=== PATIENT | female | born 1990 | race Caucasian/White ===

== ENCOUNTER 2022-07-20 12:28 | Emergency (ER) | payer OTHER, SELFPAY ==
[2022-07-20] VITALS (8 sets, daily range): BP systolic 128–141; BP diastolic 66–87; PULSE 66–84; RESP 16–28; TEMP 36.3–36.7; O2SAT 99–100
--- NOTE | ~2022-07-20 | XR_ITS ---
XR chest 1V portable DATE: 07/20/2022 12:58 INDICATION: Shortness of breath. Bronchitis. TECHNIQUE: Portable AP chest on 07/20/2022 at 1304 hours COMPARISON: None FINDINGS: Normal heart size. No hilar or mediastinal enlargement. No pulmonary infiltrate or consolid ation, pleural effusion or pulmonary vascular congestion or pneumothorax. IMPRESSION: No active cardiopulmonary disease Reviewed, dictated and finalized at location A.
--- NOTE | 2022-07-20 12:43 | ECG_ITS ---
Measurements Intervals [place] Rate: 66 P: 67 MD: 164 QRS: 74 QRSD: 84 T: 60 QT: 392 QTc: 412 Interpretive Statements SINUS RHYTHM WITH SINUS ARRHYTHMIA NORMAL ECG NO PREVIOUS ECG AVAILABLE FOR COMPARISON Electronically Signed On 07-21-2022 7:11:56 CDT by Smooth Rocha D.O.
[2022-07-20] MEDS: IPRATROPIUM 0.5 MG/ALBUTEROL SULFATE 2.5 MG AMPUL.NEB 3 ML INHALATION ×2 (13:12→14:34)
[2022-07-20] MEDS: methylPREDNISolone SOD SUCC 125 MG VIAL IV PUSH (13:28)
[2022-07-20 13:34] LABS: Base Excess ABG 1.3 mmol/L (0-2); HCO3 ABG 20.2 mmol/L (23-29); Oxygen Content ABG 19.5 %vol (16.0-22.0); Oxyhemoglobin 93.3 % (94-100); PO2 ABG 69.7 mmHg (80-90); Total Hemoglobin 14.9 g/dL (12.0-18.0); pH ABG 7.62 (7.35-7.45)
[2022-07-20] MEDS: guaiFENesin 12 HR 600 MG TABCR PO (13:35)
[2022-07-20 13:40] LABS: Basophils Absolute Auto 0.02 K/mm3 (0.00-0.10); Basophils Percent Auto 0.3 % (0.0-1.0); Eosinophils Absolute Auto 0.47 K/mm3 (0.02-0.50); Eosinophils Percent Auto 6.2 % (1.0-6.0); Hematocrit 43.2 % (35.0-49.0); Hemoglobin 14.2 g/dL (12.0-15.0); Immature Granulocyte Absolute 0.02 K/mm3 (0.00-0.00); Immature Granulocyte Percent A 0.3 % (0.0-0.0); Lymphocytes Absolute Auto 2.36 K/mm3 (1.10-4.50); Mean Corpuscular HGB Conc 32.9 g/dL (32.0-36.0); Mean Corpuscular Hemoglobin 33.7 pg (27.0-31.0); Mean Corpuscular Volume 102.6 fL (78.0-102.0); Mean Platelet Volume 9.5 fl (9.2-11.8); Monocytes Absolute Auto 0.57 K/mm3 (0.10-0.90); Monocytes Percent Auto 7.5 % (2.0-11.0); Neutrophils Absolute Auto 4.2 K/mm3 (1.7-7.2); Neutrophils Percent Auto 54.7 % (50.0-70.0); Platelet Count Result 333 K/mm3 (150-420); Red Blood Count 4.21 M/mm3 (4.20-5.40); Red Cell Distribution Width 11.9 % (11.6-14.4); White Blood Count 7.6 K/mm3 (4.8-10.8)
[2022-07-20 13:44] LABS: Device ROOM AIR; Modified Allen's Test Pass; PCO2 ABG 20.3 mmHg (35-45); Site Drawn RIGHT RADIAL
[2022-07-20] MEDS: KETOROLAC (*BKC) 60 MG/2 ML VIAL IM (13:46)
[2022-07-20 13:58] LABS: Alanine Aminotransferase 21 U/L (14-59); Alkaline Phosphatase 62 U/L (46-116); Anion Gap 11 mmol/L (8-16); Aspartate Amino Transferase 13 U/L (15-37); Bilirubin,Total 0.5 mg/dL (0.00-1.00); Blood Urea Nitrogen 9 mg/dL (7-18); Calcium 9.3 mg/dL (8.5-10.1); Carbon Dioxide 23 mmol/L (21-32); Chloride 106 mmol/L (98-108); Estimated CRCL calculation 61 ml/min; Estimated Glomerular Filt Rate > 60; Glucose 84 mg/dL (70-99); Osmolality Calculated 287 mOsm/kg (285-295); Potassium 3.5 mmol/L (3.5-5.1); Sodium 140 mmol/L (136-145)
[2022-07-20 14:01] LABS: Lactic Acid Reflex 1.5 mmol/L (0.4-2.0)
[2022-07-20 14:16] LABS: Influenza A QL RT-PCR Negative (Negative); Influenza B QL RT-PCR Negative (Negative); SARS-CoV-2 RNA PCR Negative (Negative)
--- NOTE | 2022-07-20 14:31 | ED.SOB ---
HPI - SOB/Dyspnea General Chief Complaint: Shortness of Breath/Dyspnea Stated Complaint: dyspnea Time Seen by Provider: 07/20/22 12:32 Source: patient Mode of arrival: ambulatory Limitations: no limitations History of Present Illness MD elicited complaint: shortness of breath Pertinent past history: COPD Onset (ago): day(s) (1) Timing: progressively worsening Severity: moderate Exacerbating factors: nothing Relieving factors: bronchodilators Known history of: COPD Associated symptoms: pain with inspiration and cough Related Data Allergies Allergy/AdvReac Type Severity Reaction Status Date / Time No Known Allergies Allergy Verified 07/20/22 12:44 Review of Systems Review of Systems: All systems reviewed & are unremarkable except as noted in HPI and below Constitutional: Constitutional: Reports no additional constitutional complaints Eyes: Eyes: Reports no additional eye complaints ENT: Reports system reviewed and no additional complaints, except as documented Cardiovascular: Cardiovascular: Reports no additional cardiovascular complaints Respiratory: Respiratory: Reports cough and Reports dyspnea Gastrointestinal: Gastrointestinal: Reports no additional gastrointestinal complaints Genitourinary: Genitourinary: Reports no additional female genitourinary complaints Musculoskeletal: Musculoskeletal: Reports no additional musculoskeletal complaints Integumentary/Breasts: Skin/Breast: Reports system reviewed and no additional complaints, except as docu Neurologic: Reports system reviewed and no additional complaints, except as documented Psychiatric: Psychiatric: Reports no additional psychiatric complaints Endocrine: Endocrine: Reports no additional endocrine complaints Hematologic/Lymphatic: Hematologic/Lymphatic: Reports no additional hematologic/lymphatic complaints Allergic/Immunologic: Allergic/Immunologic: Reports no additional allergic/immunologic complaints PMFSH Past Medical History Medical History Bronchitis Exam Const: General: healthy appearing and no acute distress Nutritional Appearance: well nourished Orientation/consciousness: patient oriented x3 Limitations: no limitations HENMT: Head: normal to inspection Ears: external ears normal, TM's normal bilaterally and EAC's normal General nose exam: Normal external nose present and Normal nares present Face and sinus: normal facial exam and sinuses nontender Mouth: Yes Normal oral and palatal mucosa present and Yes moist mucous membranes Teeth and gingiva: dentition normal Throat: posterior oropharynx normal Eyes: Conjunctivae: conjunctivae normal Pupils: Equal, round and reactive pupils present EOM: EOMs intact bilaterally Neck: Neck: normal visual inspection, no lymphadenopathy and no meningeal signs Chest: Chest palpation & inspection: normal inspection of the chest Resp: Effort & Inspection: labored and retractions Auscultation: rhonchi and wheezes Cardio: Rate: regular rate Rhythm: regular rhythm GI: GI Palp: Yes Soft to palpation and No Tenderness to palpation present (GI) Auscultation: normal bowel sounds : General: Yes bladder normal to palpation and Yes no CVA tenderness Bimanual exam- vagina & uterus: bladder normal to palpation Back/Spine/Pelvis: Back: no CVA tenderness Skin: General skin exam: normal color Rashes: no rashes Wounds: no wounds Neuro: General: patient oriented x3, moves all extremities, no meningeal signs, no focal motor deficits and CN's II-XI intact bilaterally Cranial nerves: Yes Equal, round and reactive pupils present and Yes Nystagmus not present Speech: normal speech Gait exam (Neuro): Normal gait present Extrem: General: normal to inspection and no pedal edema Psych: Mental Status: mental status grossly normal Affect: normal affect Attitude: cooperative Course Course Emergency Course: Pt was stable in the ED, less SOB.
== END 2022-07-20 14:54 | disposition home or self-care (01) ==
PROVIDERS: Emergency Provider Emergency Medicine; PCP Nurse Practitioner
DX: J40 Bronchitis, not specified as acute or chronic (principal); Z20.822 Contact with and (suspected) exposure to COVID-19
CPT/HCPCS: 36415; 36600; 71045; 80053; 82805; 83605; 85025; 87502; 93005; 94640; 96365; 96372; 96375; 99284; A9270; C9803; J0696; J1885; J2930; U0003; U0005

== ENCOUNTER 2023-02-26 15:09 | Emergency (ER) | payer OTHER, SELFPAY ==
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
[2023-02-26 15:09] VITALS: BP 162/99; PULSE 116; RESP 17; TEMP 36.7; O2SAT 99
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
--- NOTE | 2023-02-26 15:30 | PC.NURSE ---
patient on the phone with a [facility] at this time.
[2023-02-26] MEDS: KETOROLAC (*BKC) 60 MG/2 ML VIAL IM (15:52)
[2023-02-26] MEDS: ORPHENADRINE CITRATE 30 MG/ML 2 ML VIAL 60 MG IM (15:53)
[2023-02-26] MEDS: HYDROcodone/acetaminophen (*CRX) 5-325 MG TABLET 1 TAB PO (17:41)
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
[2023-02-26 18:07] VITALS: BP 120/72; PULSE 50; RESP 17; TEMP 36.3; O2SAT 99
--- NOTE | 2023-02-26 18:26 | PC.NURSE ---
Prescription for Flexeril 5mg one tablet TID # 20 0 refill verbal order given to Catrina at [facility] due to [facility] being closed, patient is okay with waiting until tomorrow for Percocet.
--- NOTE | 2023-02-26 18:29 | PC.NURSE ---
RN left message on [facility] voicemail to cancel the Flexeril prescription.
== END 2023-02-26 18:12 | disposition home or self-care (01) ==
PROVIDERS: Emergency Provider Emergency Medicine; PCP Family Medicine
DX: S00.83XA Contusion of other part of head, initial encounter (principal); S39.92XA Unspecified injury of lower back, initial encounter; Y04.2XXA Assault by strike against or bumped into by another person, initial encounter
CPT/HCPCS: 70486; 72128; 72131; 96372; 99284; A9270; J1885; J2360

== ENCOUNTER 2025-01-16 12:29 | Emergency (ER) | payer OTHER, SELFPAY ==
--- NOTE | ~2025-01-16 | CT_ITS ---
EXAMINATION: CT abdomen pelvis wo con DATE: 01/16/2025 13:36 INDICATION: Left flank pain. Left lower quadrant abdominal pain. TECHNIQUE: Computed tomography (CT) of the abdomen and pelvis was performed without intravenous contr ast. Automated exposure control and iterative reconstruction technique were employed. The dose-length product was 164.78 mGy-cm. COMPARISON: None. FINDINGS: The visualized portions of the lung bases demonstrate mild atelectasis on the right. No ple ural effusion. The heart size is normal. No pericardial effusion. The liver is normal. The changes of cholecystectomy. The spleen, pancreas, adrenal glands, and kidneys are normal. There is no urolithia sis. There are no dilated loops of bowel. The appendix is normal. There are no pathologically enlarge d lymph nodes. There is no free intraperitoneal fluid. There is mild lumbar spondylosis. IMPRESSION: 1. No etiology for the patient's symptoms. Reviewed, dictated and finalized at location B.
--- NOTE | ~2025-01-16 | US_ITS ---
EXAMINATION: US transvaginal DATE: 01/16/2025 14:49 INDICATION: Left pelvic pain. TECHNIQUE: Multiple transvaginal sonographic images of the pelvis were obtained. COMPARISON: CT abdomen and pelvis 01/16/2025 FINDINGS: The uterus measures 8.1 x 4.5 x 4.0 cm. There is no free fluid in the pelvis. The endometrial complex measures 3 mm in thickness. The right ovary measures 3.0 x 2.3 x 2.5 cm. The left ovary measures 2.3 x 2.8 x 2.3 cm. There is a 17 mm hemorrhagic cyst in left ovary. IMPRESSION: 1. 17 mm hemorrhagic cyst in left ovary. Reviewed, dictated and finalized at location B.
[2025-01-16 12:30] VITALS: BP 161/99; PULSE 95; RESP 16; TEMP 36.4; O2SAT 100
--- NOTE | 2025-01-16 12:37 | ED_ITS ---
HPI - Abdominal Pain General Chief Complaint: Urogenital-Female Stated Complaint: flank pain Time Seen by Provider: 01/16/25 12:33 Source: patient Mode of arrival: ambulatory Limitations: no limitations History of Present Illness HPI narrative: 34 year old female presents to the Emergency Department complaining of left suprapubic abdominal pain and left lower back pain. Onset 3 days ago. No history of kidney stones. Patient states she had history of ruptured ovarian cyst in past. States when she urinates, it still feels like she needs to void more. MD elicited complaint: abdominal pain (left suprapubic) and flank pain (left lower) Pertinent past history: other (ruptured ovarian cyst) Onset (ago): day(s) (3) Pain Consistency: intermittent Severity: moderate Quality: cramping Radiation: L flank Exacerbating factors: nothing Relieving factors: nothing Associated symptoms: denies other symptoms Related Data Patient : No Allergies Allergy/AdvReac Type Severity Reaction Status Date / Time No Known Allergies Allergy Verified 01/16/25 12:34 Review of Systems Review of Systems: All systems reviewed & are unremarkable except as noted in HPI and below Constitutional: Constitutional: Reports as per HPI, Denies chills and Denies fever(s) Eyes: Eyes: Reports as per HPI ENT: Reports system reviewed and no additional complaints, except as documented Cardiovascular: Cardiovascular: Reports as per HPI and Denies chest pain Respiratory: Respiratory: Reports as per HPI, Denies cough and Denies dyspnea Gastrointestinal: Gastrointestinal: Reports as per HPI, Reports abdominal pain, Denies constipation, Denies diarrhea, Denies nausea and Denies vomiting Genitourinary: Genitourinary: Reports no additional female genitourinary complaints and Reports flank pain Musculoskeletal: Musculoskeletal: Reports no additional musculoskeletal complaints Integumentary/Breasts: Skin/Breast: Reports system reviewed and no additional complaints, except as docu Neurologic: Reports system reviewed and no additional complaints, except as documented Psychiatric: Psychiatric: Reports no additional psychiatric complaints Endocrine: Endocrine: Reports no additional endocrine complaints Hematologic/Lymphatic: Hematologic/Lymphatic: Reports no additional hematologic/lymphatic complaints Allergic/Immunologic: Allergic/Immunologic: Reports no additional allergic/immunologic complaints PMFSH Past Medical History Medical History Bronchitis Exam Const: General: healthy appearing Nutritional Appearance: well nourished Orientation/consciousness: patient oriented x3 Limitations: no limitations HENMT: Head: normal to inspection Ears: external ears normal Face/Nose/Sinus: Normal external nose present Face and sinus: normal facial exam Mouth: Yes Normal oral and palatal mucosa present Eyes: Conjunctivae: conjunctivae normal Pupils: Equal, round and reactive pupils present EOM: EOMs intact bilaterally Direct Ophthalmoscopy: no photophobia Neck: Neck: normal visual inspection Chest: Chest palpation & inspection: normal inspection of the chest Resp: Effort & Inspection: normal respiratory effort Cardio: Rate: regular rate GI: Inspection: non-distended GI Palp: Yes Soft to palpation, Yes Tenderness to palpation present (GI) (very slight left suprapubic tenderness), No Guarding due to palpation present (GI), No Hernia present, No Palpable mass present and No Rebound tenderness present : General: Yes bladder normal to palpation Back/Spine/Pelvis: Back: no CVA tenderness Skin: General skin exam: normal color Rashes: no rashes Wounds: no wounds Neuro: General: patient oriented x3 Cranial nerves: Yes Nystagmus not present Speech: normal speech Gait exam (Neuro): Normal gait present Extrem: General: normal to inspection and no clubbing, cyanosis or edema Psych: Mental Status: mental status grossly normal Course Course Emergency Course: 34 y/o female presents to the ED c/o left suprapubic /left flank pain. Onset 3 days ago. Hx ruptured ovarian cyst. No hx of kidney stones. PE: abdomen minimally tender to palpation, back non-tender to palpation or percussion UA: trace LE UPreg: negative CT Abd/Pelvis: no acute findings Pelvic U/S: 17 mm hemorrhagic cyst L ovary *reviewed and discussed results with patient. Discussed further management. Patient voices understanding and agreement. Rx and Instructions Vital Signs Vital signs: Vital Signs Temperature 36.4 C 01/16/25 12:30 Pulse Rate 95 01/16/25 12:30 Respiratory Rate 16 01/16/25 12:30 Blood Pressure 161/99 H 01/16/25 12:30 Pulse Oximetry 100 01/16/25 12:30 Oxygen Delivery Room Air 01/16/25 12:30 Temperature 36.4 C 01/16/25 12:30 Pulse Rate 76 01/16/25 15:00 Respiratory Rate 17 01/16/25 15:00 Blood Pressure 151/88 H 01/16/25 15:00 Pulse Oximetry 100 01/16/25 15:00 Oxygen Delivery Room Air 01/16/25 15:00 MDM - Abdominal Pain Lab Data Labs: Lab Results 01/16/25 Range/Units 12:45 Urine Color Light yellow (Yellow) Urine Appearance Clear (Clear) Urine pH 6.5 (5.0-8.0) Ur Specific [place] 1.020 (1.010-1.020) Urine Protein Negative (Negative) Urine Glucose (UA) Negative (Negative) Urine Ketones Negative (Negative) Ur Blood (Man) Negative (Negative) Urine Nitrate Negative (Negative) Urine Bilirubin Negative (Negative) Urine Urobilinogen 0.2 (0.2-1.0) mg/dL Ur Leukocyte Esterase Trace H (Negative) Urine RBC None seen (0-2) /hpf Urine WBC None seen (0-3) /hpf Ur Squamous Epith Cells Few (Few) /hpf Urine Bacteria Trace (None) /hpf Urine Test Negative Imaging Data Radiologist's impression: ITS Impressions Abdomen/Pelvis CT 01/16/25 13:38 IMPRESSION: 1. No etiology for the patient's symptoms. Transvaginal US 01/16/25 15:01 IMPRESSION: 1. 17 mm hemorrhagic cyst in left ovary. Discharge Plan Discharge Clinical Impression: Hemorrhagic cyst of left ovary Patient Disposition: Home, Self-Care Condition: Stable Instructions: Ovarian Cyst (ED) Additional Instructions: Take medication as prescribed Follow up Primary Care Physician - call tomorrow Patient Language: Bulgarian Prescriptions: New hydrocodone-acetaminophen 7.5-325 mg tablet 1 tablet PO Q6H PRN (Reason: pain) Qty: 20 0RF No Action amoxicillin 875 mg tablet 875 mg PO Q12H Qty: 20 0RF Mucinex DM 30-600 mg tablet extended release 12 hr 1 tablet PO Q12H Qty: 20 0RF methylprednisolone [Medrol (Asif)] 4 mg tablets,dose pack See Rx Instructions .ROUTE .COMPLEX Qty: 21 0RF Rx Instructions: orally per package directions albuterol sulfate 90 mcg/actuation HFA aerosol inhaler 2 puff inhalation QID Qty: 8.5 0RF ibuprofen 800 mg tablet 800 mg PO TID Qty: 20 0RF omeprazole magnesium [Prilosec OTC] 20 mg tablet,delayed release (DR/EC) 20 mg PO BID Qty: 20 0RF tramadol 50 mg tablet 50 mg PO BID PRN (Reason: pain) Qty: 4 0RF cyclobenzaprine 5 mg tablet 5 mg PO TID Qty: 20 0RF oxycodone-acetaminophen [Percocet] 5-325 mg tablet 1 tablet PO Q6H PRN (Reason: pain) Qty: 14 0RF Follow-up/Referrals: Nikita Ayon M.D. [Primary Care Provider] - Stand Alone Forms: Work/School Release IP Time of Disposition: 15:34
[2025-01-16 12:47] LABS: Add Urine Microscopic? YES; Appearance Urine Clear (Clear); Bilirubin Urine Negative (Negative); Blood Urine Negative (Negative); Color Urine Light Yellow (Yellow); Glucose Urine UA Negative (Negative); Ketones Urine Negative (Negative); Leukocyte Esterase Ur Trace (Negative); Nitrate Urine Negative (Negative); Protein Urine Negative (Negative); Urobilinogen Urine 0.2 mg/dL (0.2-1.0); pH Urine 6.5 (5.0-8.0)
[2025-01-16 13:00] LABS: Bacteria Urine Trace /hpf; Pregnancy On Board Control Positive; RBC Urine None seen /hpf (0-2); Squamous Epithelial Cell Urine Few /hpf (Few); Urine Pregnancy Test Negative; WBC Urine None seen /hpf (0-3)
[2025-01-16 13:30] VITALS: BP 130/78; PULSE 75; RESP 16; O2SAT 100
[2025-01-16 14:00] VITALS: BP 137/92; PULSE 66; RESP 17; O2SAT 100
--- OUTSIDE RECORDS SUMMARY | 2025-01-16 14:22 | XMS_ITS | Clinical Summary ---
Author Organization [facility] Address [facility] [place] [address] Care Team Providers Care Director Of Direct Marketing Name Role Phone Mickey Bustamante MD Primary Care Provider [phone] Leland Brooks COMMODITY MANAGEMENT SPECIALIST Unavailable [phone] Allergies No known active allergies Medications traMADol 50 MG tabletIndication s:Acute Pain < 7 Day Supply Indications : Acute Pain < 7 Day Supply 1-2 every 6 hours as needed for pain 20 tablet 06/17/2021 Active Active Problems Problem Noted Date Diagnosed Date Acute cholecystitis 01/17/2020 Family History Medical History Relation Comments Heart Disease Father Hypertension Father Heart Disease Maternal Grandfather Aneurysm Paternal Grandfather Heart Disease Paternal Grandfather Asthma Son Heart Disease Son Relation Status Comments Father Maternal Grandfather Paternal Grandfather Son Social History Tobacco Use Types Packs/Day Years Used Date Smoking Tobacco: Every Day Cigarettes Smokeless Tobacco: Never Alcohol Use Standard Drinks/Week Comments Yes 0 (1 standard drink = 0.6 oz pur e alcohol) AUDIT-C Answer Date Recorded Frequency of Alcohol Consumption Never 05/25/2019 Average Number of Drinks Not on file 019 Frequency of Binge Drinking Not on file 05/09 Comments No Sex and Gender Information Value Date Recorded Sex Assigned at Not on file Legal Sex Female 2:30 PM CDT Gender Identity Not on file Sexual Orientation Not on file Last Filed Vital Signs Vital Sign Reading Time Taken Comments Blood Pressure 115/74 06/17/2021 7:00 PM CDT Pulse 83 06/17/2021 6:53 PM CDT Temperature 36.3 C (97.4 F) 06/17/2021 6:53 PM CDT Respiratory Rate 18 06/17/2021 6:53 PM CDT Oxygen Saturation 100% 06/17/2021 7:00 PM CDT Inhaled Oxygen Concentration - - Weight 52.2 kg (115 lb) 06/17/2021 6:53 PM CDT Height 154.9 cm (5' 1 ) 06/17/2021 6:53 PM CDT Body Mass Index 21.73 06/17/2021 6:53 PM CDT Plan of Treatment Health Maintenance Due Date Last Done Comments Cervical Cancer Screening Pa p Smear (Age 30 to 64) Every 3 Years 1992 Annual Physical 1995 Pneumococcal Vaccine: Pediat rics (0 to 5 Years) and At-Risk Patients (6 to 64 Years) (1 of 2 - PCV) 1998 Hepatitis C 2010 DTaP, Tdap and Td Vaccines ( 1 - Tdap) 2011 Hepatitis B Vaccines (1 of 3 - 19+ 3-dose series) 2011 Cervical Cancer Screening Pa p with HPV Testing (Age 30 to 64) Every 5 Years 2022 Cervical Cancer Screening with HPV 2022 COVID-19 Vaccine ( - 2023-2 5 season) 2024 Influenza Adult (#1) 2024 HPV Vaccines Aged Out No longer eligi ble based on patient's age to complete this topic Meningococcal B Vaccine Aged Out No l onger eligible based on patient's age to complete this topic Meningococcal Vaccine Aged Out No johny aparna eligible based on patient's age to complete this topic RSV Immunizations Under 20 Months Aged Out No longer eligible based on patient's age to complete this topic Insurance [employer]ET[employer] Advance Directives * Full Code (Latest Code Status on File) Date Activated Date Inactivated Comments 01/17/2020 4:57 AM 01/18/2020 12:27 PM Care Teams Director Of Direct Marketing Relationship Specialty Start Date End Date Mickey Bustamante MD [address] [place] [address] PCP - General FAMILY PRACTICE 04/11/19 Leland Brooks, COMMODITY MANAGEMENT SPECIALIST [address] [place] [address] NURSE PRACTITIONER 08/01/19
--- OUTSIDE RECORDS SUMMARY | 2025-01-16 14:22 | XMS_ITS | Encounter Summary ---
Author Organization [facility] Address [facility] [place] [address] Care Team Providers Care Shed Workers Supervisor Name Role Phone Mickey Bustamante MD Primary Care Provider [phone] Lelnad Brooks LOOP SEWER Unavailable [phone] Encounter Details Date Type Department Care Team (Late st Contact Info) Description 04/08/2019 [facility] [address] [place] [address] , Harvey Fan MD Social History Tobacco Use Types Packs/Day Years Used Date Smoking Tobacco: Never Assessed Comments Unknown Sex and Gender Information Value Date Recorded Sex Assigned at Not on file Legal Sex Female 2:30 PM CDT Gender Identity Not on file Sexual Orientation Not on file documented as of this encounter Plan of Treatment Not on file documented as of this encounter Visit Diagnoses Not on filedocumented in this encounter Care Teams Shed Workers Supervisor Relationship Specialty Start Date End Date Mickey Bustamante MD [address] [place] [address] PCP - General FAMILY PRACTICE 04/11/19 Leland Brooks, LOOP SEWER [address] [place] [address] NURSE PRACTITIONER 08/01/19 documented as of this encounter
--- OUTSIDE RECORDS SUMMARY | 2025-01-16 14:22 | XMS_ITS | Encounter Summary ---
Author Organization [facility] Address [facility] [place] [address] Care Team Providers Care Wet And Dry Sugar Bin Operator Name Role Phone Mickey Bustamante MD Primary Care Provider Leland Brooks SETTER COLD ROLLING MACHINE Unavailable [phone] Encounter Details Date Type Department Care Team (Late st Contact Info) Description 04/16/2019 Abstract [facility] [address] [place] [address] , Generic Conversion, Social History Tobacco Use Types Packs/Day Years [...] on filedocumented in this encounter Care Teams Wet And Dry Sugar Bin Operator Relationship Specialty Start Date End Date Mickey Bustamante MD [address] [place] [address] PCP - General FAMILY PRACTICE 04/11/19 Leland Brooks, SETTER COLD ROLLING MACHINE [address] [place] [address] NURSE PRACTITIONER 08/01/19 documented as of this encounter
[2025-01-16 14:30] VITALS: BP 135/98; PULSE 70; RESP 17; O2SAT 100
--- OUTSIDE RECORDS SUMMARY | 2025-01-16 14:59 | XMS_ITS | Clinical Summary ---
Author Organization [facility] Address [facility] [place] [address] Care Team Providers Care Used Car Salesperson Name Role Phone Mickey Bustamante MD Primary Care Provider [phone] Leland Brooks ADMINISTRATIVE ASSISTANT FRONT DESK Unavailable [phone] Allergies No known active allergies Medications [...] 4:57 AM 01/18/2020 12:27 PM Care Teams Used Car Salesperson Relationship Specialty Start Date End Date Mickey Bustamante MD [address] [place] [address] PCP - General FAMILY PRACTICE 04/11/19 Leland Brooks, ADMINISTRATIVE ASSISTANT FRONT DESK [address] [place] [address] NURSE PRACTITIONER 08/01/19
--- OUTSIDE RECORDS SUMMARY | 2025-01-16 14:59 | XMS_ITS | Encounter Summary ---
Author Organization [facility] Address [facility] [place] [address] Care Team Providers Care Vest Presser Name Role Phone Mickey Bustamante MD Primary Care Provider [phone] Leland Brooks AUTOMOBILE SALES CONSULTANT Unavailable [phone] Encounter Details Date Type Department Care Team (Late st Contact Info) Description 04/16/2019 Abstract [facility] CONVERSION [address] [place] [address] , Generic Conversion, Social History Tobacco Use [...] on filedocumented in this encounter Care Teams Vest Presser Relationship Specialty Start Date End Date Mickey Bustamante MD [address] [place] [address] PCP - General FAMILY PRACTICE 04/11/19 Leland Brooks, AUTOMOBILE SALES CONSULTANT [address] [place] [address] NURSE PRACTITIONER 08/01/19 documented as of this encounter
--- OUTSIDE RECORDS SUMMARY | 2025-01-16 14:59 | XMS_ITS | Encounter Summary ---
Author Organization [facility] Address [facility] [place] [address] Care Team Providers Care Personal Shopper Name Role Phone Mickey Bustamante MD Primary Care Provider [phone] Leland Brooks CHILD WELFARE SOCIAL WORKER Unavailable [phone] Encounter Details Date Type Department Care Team (Late st Contact Info) Description 04/08/2019 Abstract [facility] [address] [place] [address] , Harvey Fan MD Social History Tobacco [...] on filedocumented in this encounter Care Teams Personal Shopper Relationship Specialty Start Date End Date Mickey Bustamante MD [address] [place] [address] PCP - General FAMILY PRACTICE 04/11/19 Leland Brooks, CHILD WELFARE SOCIAL WORKER [address] [place] [address] NURSE PRACTITIONER 08/01/19 documented as of this encounter
[2025-01-16 15:00] VITALS: BP 151/88; PULSE 76; RESP 17; O2SAT 100
[2025-01-16 15:40] VITALS: BP 139/87; PULSE 73; RESP 16; TEMP 36.6; O2SAT 99
== END 2025-01-16 15:40 | disposition home or self-care (01) ==
PROVIDERS: Emergency Provider Emergency Medicine; PCP Family Medicine
DX: N83.202 Unspecified ovarian cyst, left side (principal)
CPT/HCPCS: 74176; 76830; 81001; 81025; 99284

== ENCOUNTER 2025-02-17 13:04 | Outpatient (CLI) | payer OTHER, SELFPAY ==
--- NOTE | ~2025-02-17 | US_ITS ---
Pelvic ultrasound. Clinical History: Right ovarian hemorrhagic cyst COMPARISON: 01/16/2025 Technique: Realtime transvaginal scanning of the pelvis was performed. Color flow Doppler and Doppler spectral analysis were performed. Findings: The uterus is anteverted. The endometrial stripe has a thickness of 4 mm. No focal mass is identified. The right ovary measures 2.1 x 1.9 x 1.0 cm. No significant right ovarian or adnexal mass is seen. The left ovary measures 4.9 x 4.2 x 3.4 cm. Simple left ovarian cyst measures 4.2 cm in diameter. There is no evidence of free fluid in the cul de sac. Impression: 4.2 cm simple left ovarian cyst. Reviewed, dictated and finalized at [facility]. Impression: 4.2 cm simple left ovarian cyst.
--- OUTSIDE RECORDS SUMMARY | 2025-02-17 13:08 | XMS_ITS | Encounter Summary ---
Author Organization [facility] Address [facility] [place] [address] Care Team Providers Care Operational Communication Chief Name Role Phone Mickey Bustamante MD Primary Care Provider [phone] Leland Brooks WEB DESIGNER DEVELOPER Unavailable [phone] Encounter Details Date Type Department Care Team (Late st Contact Info) Description 04/16/2019 Abstract [facility] CONVERSION [address] [place] [address] , Generic Conversion, Social History Tobacco Use [...] on filedocumented in this encounter Care Teams Operational Communication Chief Relationship Specialty Start Date End Date Mickey Bustamante MD [address] [place] [address] PCP - General FAMILY PRACTICE 04/11/19 Leland Brooks, WEB DESIGNER DEVELOPER [address] [place] [address] NURSE PRACTITIONER 08/01/19 documented as of this encounter
--- OUTSIDE RECORDS SUMMARY | 2025-02-17 13:08 | XMS_ITS | Clinical Summary ---
Author Organization [facility] Address [facility] [place] [address] Care Team Providers Care Administrator Pesticide Name Role Phone Mickey Bustamante MD Primary Care Provider [phone] Leland Brooks PULP MILL SUPERVISOR Unavailable [phone] Allergies No known active allergies Medications [...] Vaccine ( - 2023-2 5 season) 2024 HPV Vaccines Aged Out No longer [...] patient's age to complete this topic Insurance [facility] Advance Directives * Full Code (Latest Code Status on File) Date Activated Date Inactivated Comments 01/17/2020 4:57 AM 01/18/2020 12:27 PM Care Teams Administrator Pesticide Relationship Specialty Start Date End Date Mickey Bustamante MD [address] [place] [address] PCP - General FAMILY PRACTICE 04/11/19 Leland Brooks, PULP MILL SUPERVISOR [address] [place] [address] NURSE PRACTITIONER 08/01/19
--- OUTSIDE RECORDS SUMMARY | 2025-02-17 13:08 | XMS_ITS | Encounter Summary ---
Author Organization [facility] Address [facility] [place] [address] Care Team Providers Care Drawing Box Tender Name Role Phone Mickey Bustamante MD Primary Care Provider [phone] Leland Brooks MALT HOUSE LOADER Unavailable [phone] Encounter Details Date Type Department Care Team (Late st Contact Info) Description 04/08/2019 Abstract [facility] [address] [place] [address] , Harvey Fan MD Social History Tobacco [...] on filedocumented in this encounter Care Teams Drawing Box Tender Relationship Specialty Start Date End Date Mickey Bustamante MD [address] [place] [address] PCP - General FAMILY PRACTICE 04/11/19 Leland Brooks, MALT HOUSE LOADER [address] [place] [address] NURSE PRACTITIONER 08/01/19 documented as of this encounter
== END 2025-02-17 13:05 | disposition home or self-care (01) ==
PROVIDERS: PCP Family Medicine; Visit Provider Family Medicine
DX: N83.201 Unspecified ovarian cyst, right side (principal)
CPT/HCPCS: 76830

== ENCOUNTER 2025-02-19 17:55 | Emergency (ER) | payer OTHER, SELFPAY ==
--- NOTE | ~2025-02-19 | CT_ITS ---
EXAMINATION: CT abdomen pelvis w con DATE: 02/19/2025 19:34 INDICATION: RLQ pain X 1 WEEK. HX OF OVARIAN CYSTS. TECHNIQUE: Computed tomography (CT) of the abdomen and pelvis was performed with 100 mL Omnipaque 350 intravenous contrast. Automated exposure control and iterative reconstruction technique were employe d. The dose-length product was 270.18 mGy-cm. COMPARISON: 01/16/2025; pelvic ultrasound 02/17/2025. FINDINGS: Lower thorax: Unremarkable Liver: Subcentimeter hypodensities near the dome, too small to characterize but likely represent cyst s or hemangiomas. Biliary/Gallbladder: Gallbladder is absent. No bile duct dilation. Pancreas: No mass or duct dilation. Spleen: Normal. Adrenals:No mass. Kidneys: No suspicious mass, obstructing stone, or hydronephrosis. GI tract: No small or large bowel dilation. Normal appendix. Mesentery/Peritoneum: No ascites, mass, or free air. Retroperitoneum: No mass. Pelvis: 5.0 cm right ovarian cyst. Normal bilateral ovaries and uterus. Mostly empty urinary bladder. Soft Tissues: Soft tissues and body wall unremarkable. Bones: No acute osseous finding. IMPRESSION: No acute abdominopelvic process detected. 5.1 cm simple appearing left ovarian cyst. Reviewed, dictated and finalized at location K.
[2025-02-19 17:56] VITALS: BP 136/91; PULSE 92; RESP 16; TEMP 36.9; O2SAT 100
--- OUTSIDE RECORDS SUMMARY | 2025-02-19 17:58 | XMS_ITS | Clinical Summary ---
Author Organization [facility] Address [facility] [place] [address] Care Team Providers Care Senior Quality Control Technician Name Role Phone Mickey Bustamante MD Primary Care Provider [phone] Leland Brooks NATURAL FABRICATOR Unavailable [phone] Allergies No known active allergies Medications [...] 5 Years) and At-Risk Patients (6 to 49 Years) (1 of 2 - PCV) 1998 [...] patient's age to complete this topic Insurance [facility] Advance Directives * Full Code (Latest Code Status on File) Date Activated Date Inactivated Comments 01/17/2020 4:57 AM 01/18/2020 12:27 PM Care Teams Senior Quality Control Technician Relationship Specialty Start Date End Date Mickey Bustamante MD [address] [place] [address] PCP - General FAMILY PRACTICE 04/11/19 Leland Brooks, NATURAL FABRICATOR [address] [place] [address] NURSE PRACTITIONER 08/01/19
--- OUTSIDE RECORDS SUMMARY | 2025-02-19 17:58 | XMS_ITS | Encounter Summary ---
Author Organization [facility] Address [facility] [place] [address] Care Team Providers Care Panel Machine Tender Name Role Phone Mickey Bustamante MD Primary Care Provider [phone] Leland Brooks CASH RECONCILIATION SPECIALIST Unavailable [phone] Encounter Details Date Type Department Care Team (Late st Contact Info) Description 04/08/2019 Abstract [facility] [address] [place] [address] , Harvey Fan MD Social History Tobacco [...] on filedocumented in this encounter Care Teams Panel Machine Tender Relationship Specialty Start Date End Date Mickey Bustamante MD [address] [place] [address] PCP - General FAMILY PRACTICE 04/11/19 Leland Brooks, CASH RECONCILIATION SPECIALIST [address] [place] [address] NURSE PRACTITIONER 08/01/19 documented as of this encounter
--- OUTSIDE RECORDS SUMMARY | 2025-02-19 17:58 | XMS_ITS | Encounter Summary ---
Author Organization [facility] Address [facility] [place] [address] Care Team Providers Care German Professor Name Role Phone Mickey Bustamante MD Primary Care Provider [phone] Leland Brooks DIGITAL MARKETING PROJECT MANAGER Unavailable [phone] Encounter Details Date Type Department Care Team (Late st Contact Info) Description 04/16/2019 Abstract [facility] CONVERSION [address] [place] [address] , Generic Conversion, Social History Tobacco Use [...] on filedocumented in this encounter Care Teams German Professor Relationship Specialty Start Date End Date Mickey Bustamante MD [address] [place] [address] PCP - General FAMILY PRACTICE 04/11/19 Leland Brooks, DIGITAL MARKETING PROJECT MANAGER [address] [place] [address] NURSE PRACTITIONER 08/01/19 documented as of this encounter
--- NOTE | 2025-02-19 18:06 | ED_ITS ---
HPI - General Adult General Chief complaint: Urogenital-Female Stated complaint: vaginal pain Time Seen by Provider: 02/19/25 17:57 History of Present Illness HPI narrative: Tyesha is a 34F with a PMH of ovarian cysts and UTI that presented to the ED with cramping pain in her RLQ that recently became worse. It is now shooting into her abdomen. She is currently on her cycle but thinks she is bleeding less. She is not on control. No hematuria or dysuria reported. US from 2 days prior showed a 4.2 cm ovarian cyst. Related Data Home Medications ?Medication ?Instructions ?Recorded ?Confirmed ?Last Taken ?Type hydrocodone 5 mg-acetaminophen 325 1 tablet PO Q6-8H PRN pain 02/19/25 Unknown History mg tablet Allergies Allergy/AdvReac Type Severity Reaction Status Date / Time codeine Allergy Mild Unknown Verified 02/19/25 18:23 prednisone Allergy Mild Unknown Verified 02/19/25 18:23 Review of Systems 2 Review of Systems: All systems reviewed & are unremarkable except as noted in HPI and below [facility] Past Medical History Medical History Bronchitis Exam 2 Const: General: cooperative, healthy appearing, comfortable, no acute distress, well developed, alert, awake and Physically active O rientation/consciousness: oriented to person, oriented to place and oriented to time HENMT: Head: normal to inspection, normocephalic and atraumatic Ears: h earing grossly normal bilaterally and external ears normal Face/Nose/Sinus: N ormal external nose present Eyes: General: appearance normal, both eyes and all related structures P eriorbital: periorbital findings normal Sclera: sclerae normal Pupils: E qual, round and reactive pupils present Neck: Neck: normal visual inspection Chest: Chest palpation & inspection: normal inspection of the chest Resp: Effort & Inspection: normal respiratory effort, able to speak in complete sentences and no respiratory distress Cardio: Jugular venous distension: no JVD Rate: regular rate GI: Inspection: non-distended GI Palp: Yes Soft to palpation, Yes Tenderness to palpation present (GI) (mild TTP in the RLQ), No Guarding due to palpation present (GI), No Rigid due to palpation, No Hernia present, No Palpable mass present and No Rebound tenderness present Auscultation: normal bowel sounds Skin: General skin exam: normal color and no rashes or lesions noted Neuro: General: oriented to person, oriented to place and oriented to time Cranial nerves: Yes Equal, round and reactive pupils present Extrem: General: normal to inspection Course Course Emergency Course: Gave toradol for pain. Ordered labs as below. EXAMINATION: CT abdomen pelvis w con DATE: 02/19/2025 19:34 INDICATION: RLQ pain X 1 WEEK. HX OF OVARIAN CYSTS. TECHNIQUE: Computed tomography (CT) of the abdomen and pelvis was performed with 100 mL Omnipaque 350 intravenous contrast. Automated exposure control and iterative reconstruction technique were employed. The dose-length product was 270.18 mGy-cm. COMPARISON: 01/16/2025; pelvic ultrasound 02/17/2025. FINDINGS: Lower thorax: Unremarkable Liver: Subcentimeter hypodensities near the dome, too small to characterize but likely represent cysts or hemangiomas. Biliary/Gallbladder: Gallbladder is absent. No bile duct dilation. Pancreas: No mass or duct dilation. Spleen: Normal. Adrenals:No mass. Kidneys: No suspicious mass, obstructing stone, or hydronephrosis. GI tract: No small or large bowel dilation. Normal appendix. Mesentery/Peritoneum: No ascites, mass, or free air. Retroperitoneum: No mass. Pelvis: 5.0 cm right ovarian cyst. Normal bilateral ovaries and uterus. Mostly empty urinary bladder. Soft Tissues: Soft tissues and body wall unremarkable. Bones: No acute osseous finding. IMPRESSION: No acute abdominopelvic process detected. 5.1 cm simple appearing left ovarian cyst. Labs largely unremarkable Pain could be from the ovarian cyst vs endometriosis vs functional pain vs other Vital Signs Vital signs: Vital Signs Temperature 98.5 F 02/19/25 17:56 Pulse Rate 92 02/19/25 17:56 Respiratory Rate 16 02/19/25 17:56 Blood Pressure 136/91 H 02/19/25 17:56 Pulse Oximetry 100 02/19/25 17:56 Oxygen Delivery Room Air 02/19/25 17:56 Temperature 98.5 F 02/19/25 17:56 Pulse Rate 92 02/19/25 17:56 Respiratory Rate 16 02/19/25 17:56 Blood Pressure 136/91 H 02/19/25 17:56 Pulse Oximetry 100 02/19/25 17:56 Oxygen Delivery Room Air 02/19/25 17:56 Medical Decision Making Vital Signs Vital Signs: Vital Signs Temperature 98.5 F 02/19/25 17:56 Pulse Rate 92 02/19/25 17:56 Respiratory Rate 16 02/19/25 17:56 Blood Pressure 136/91 H 02/19/25 17:56 Pulse Oximetry 100 02/19/25 17:56 Oxygen Delivery Room Air 02/19/25 17:56 Temperature 98.5 F 02/19/25 17:56 Pulse Rate 92 02/19/25 17:56 Respiratory Rate 16 02/19/25 17:56 Blood Pressure 136/91 H 02/19/25 17:56 Pulse Oximetry 100 02/19/25 17:56 Oxygen Delivery Room Air 02/19/25 17:56 Lab Data 02/19/25 18:25 02/19/25 18:25 Labs: Lab Results 02/19/25 Range/Units 18:25 WBC 5.6 (4.8-10.8) K/mm3 RBC 4.11 L (4.20-5.40) M/mm3 Hgb 14.5 (12.0-15.0) g/dL Hct 44.4 (35.0-49.0) % MCV 108.0 H (78.0-102.0) fL MCH 35.3 H (27.0-31.0) pg MCHC 32.7 (32-36) g/dL RDW 11.9 (11.6-14.4) % Plt Count 286 (150-420) K/mm3 MPV 9.2 (9.2-11.8) fl Immature Gran % (Auto) 0.4 H (0.0-0.0) % Neut % (Auto) 58.7 (50.0-70.0) % Lymph % (Auto) 31.0 (18.0-42.0) % [place] % (Auto) 6.6 (2.0-11.0) % Eos % (Auto) 2.9 (1.0-6.0) % Baso % (Auto) 0.4 (0.0-1.0) % Lymph # (Auto) 1.73 (1.10-4.50) K/mm3 [place] # (Auto) 0.37 (0.10-0.90) K/mm3 Eos # (Auto) 0.16 (0.02-0.50) K/mm3 Baso # (Auto) 0.02 (0.00-0.10) K/mm3 Abs Immat Gran (auto) 0.02 H (0.00-0.00) K/mm3 Absolute Neuts (auto) 3.28 (1.70-7.20) K/mm3 Absolute Nucleated RBC 0.00 (0.00-0.00) K/mm3 Nucleated RBC % 0.0 (0-0.0) % PT 10.4 (9.50-12.1) Seconds INR 0.9 Sodium 140 (136-145) mmol/L Potassium 3.6 (3.5-5.1) mmol/L Chloride 103 (98-108) mmol/L Carbon Dioxide 28 (21-32) mmol/L Anion Gap 9 (4-12) mmol/L BUN 13 (7-18) mg/dL Creatinine 0.75 (0.55-1.02) mg/dL Estim Creat Clear Calc 74 ml/min Estimated GFR > 60 (59 - ) Glucose 89 (70-99) mg/dL Calculated Osmolality 289 (285-295) mOsm/kg Calcium 8.4 L (8.5-10.1) mg/dL Total Bilirubin 0.7 (0.00-1.00) mg/dL AST 20 (15-37) U/L ALT 25 (14-59) U/L Alkaline Phosphatase 71 (46-116) U/L C-Reactive Protein < 0.5 (0.0-0.9) mg/dL Total Protein 7.5 (6.4-8.2) g/dL Albumin 4.2 (3.4-5.0) g/dL Lipase 19 (16-77) U/L Urine Color Dark yellow (Yellow) Urine Appearance Clear (Clear) Urine pH 5.0 (5.0-8.0) Ur Specific [place] >= 1.030 H (1.010-1.020) Urine Protein Trace H (Negative) Urine Glucose (UA) Negative (Negative) Urine Ketones Trace H (Negative) Ur Blood (Man) Negative (Negative) Urine Nitrate Negative (Negative) Urine Bilirubin 1+ H (Negative) Urine Urobilinogen 0.2 (0.2-1.0) mg/dL Ur Leukocyte Esterase Negative (Negative) Ur Squamous Epith Cells Moderate H (Few) /hpf Urine Mucus Moderate H /lpf Urine Test Negative Discharge Plan Discharge Clinical Impression: Ovarian cyst Patient Disposition: Home Condition: Stable Instructions: Ovarian Cyst (ED) Patient Language: Georgian Prescriptions: New hydrocodone-acetaminophen 5-325 mg tablet 1 tablet PO Q6H PRN (Reason: pain) Qty: 10 0RF hydrocodone-acetaminophen 5-325 mg tablet 1 tablet PO Q6H PRN (Reason: pain) Qty: 10 0RF No Action hydrocodone-acetaminophen 5-325 mg tablet 1 tablet PO Q6-8H PRN (Reason: pain) Follow-up/Referrals: Nikita Ayon M.D. [Primary Care Provider] -
[2025-02-19] MEDS: KETOROLAC 30 MG/ML VIAL (*BKC) IM (18:13)
--- NOTE | 2025-02-19 18:25 | PC.NURSE ---
On 02/19/25, the student, [[email or web address] gross ], provided care and completed [facility] documentation on this patient. I have reviewed the student's documentation and agree with the findings.
[2025-02-19 18:38] LABS: Basophils Absolute Auto 0.02 K/mm3 (0.00-0.10); Basophils Percent Auto 0.4 % (0.0-1.0); Eosinophils Absolute Auto 0.16 K/mm3 (0.02-0.50); Eosinophils Percent Auto 2.9 % (1.0-6.0); Hematocrit 44.4 % (35.0-49.0); Hemoglobin 14.5 g/dL (12.0-15.0); Immature Granulocyte Absolute 0.02 K/mm3 (0.00-0.00); Immature Granulocyte Percent A 0.4 % (0.0-0.0); Lymphocytes Absolute Auto 1.73 K/mm3 (1.10-4.50); Mean Corpuscular HGB Conc 32.7 g/dL (32-36); Mean Corpuscular Hemoglobin 35.3 pg (27.0-31.0); Mean Platelet Volume 9.2 fl (9.2-11.8); Monocytes Absolute Auto 0.37 K/mm3 (0.10-0.90); Monocytes Percent Auto 6.6 % (2.0-11.0); Neutrophils Absolute Auto 3.28 K/mm3 (1.70-7.20); Neutrophils Percent Auto 58.7 % (50.0-70.0); Platelet Count Result 286 K/mm3 (150-420); Red Blood Count 4.11 M/mm3 (4.20-5.40); Red Cell Distribution Width 11.9 % (11.6-14.4); White Blood Count 5.6 K/mm3 (4.8-10.8)
[2025-02-19 18:41] LABS: Add Urine Microscopic? YES; Appearance Urine Clear (Clear); Bilirubin Urine 1+ (Negative); Blood Urine Negative (Negative); Color Urine Dark Yellow (Yellow); Glucose Urine UA Negative (Negative); Ketones Urine Trace (Negative); Leukocyte Esterase Ur Negative (Negative); Nitrate Urine Negative (Negative); Protein Urine Trace (Negative); Specific Grav Ur >= 1.030 (1.010-1.020); Urobilinogen Urine 0.2 mg/dL (0.2-1.0)
[2025-02-19 18:43] LABS: INR 0.9; Prothrombin Time 10.4 Seconds (9.50-12.1)
[2025-02-19 18:44] LABS: Pregnancy On Board Control Positive; Urine Pregnancy Test Negative
[2025-02-19 18:45] LABS: Alanine Aminotransferase 25 U/L (14-59); Albumin Level 4.2 g/dL (3.4-5.0); Alkaline Phosphatase 71 U/L (46-116); Anion Gap 9 mmol/L (4-12); Aspartate Amino Transferase 20 U/L (15-37); Bilirubin,Total 0.7 mg/dL (0.00-1.00); Blood Urea Nitrogen 13 mg/dL (7-18); Calcium 8.4 mg/dL (8.5-10.1); Carbon Dioxide 28 mmol/L (21-32); Chloride 103 mmol/L (98-108); Estimated CRCL calculation 74 ml/min; Estimated Glomerular Filt Rate > 60; Glucose 89 mg/dL (70-99); Lipase 19 U/L (16-77); Osmolality Calculated 289 mOsm/kg (285-295); Potassium 3.6 mmol/L (3.5-5.1); Sodium 140 mmol/L (136-145); Total Protein 7.5 g/dL (6.4-8.2)
[2025-02-19 18:50] LABS: CRP < 0.5 mg/dL (0.0-0.9); Mucus Urine Moderate /lpf; Squamous Epithelial Cell Urine Moderate /hpf (Few)
[2025-02-19] MEDS: ONDANSETRON HCL ODT 4 MG TABLET PO (19:44)
[2025-02-19] MEDS: HYDROcodone/acetaminophen (*CRX) 5-325 MG TABLET 1 TAB PO (19:44)
[2025-02-19 20:13] VITALS: BP 122/90; PULSE 68; RESP 18; TEMP 36.6; O2SAT 100
== END 2025-02-19 20:18 | disposition home or self-care (01) ==
PROVIDERS: Emergency Provider Family Medicine; PCP Family Medicine
DX: N83.202 Unspecified ovarian cyst, left side (principal); Z79.891 Long term (current) use of opiate analgesic
CPT/HCPCS: 36415; 74177; 80053; 81001; 81025; 83690; 85025; 85610; 86140; 96372; 99284; A9270; J1885; Q9967

== ENCOUNTER 2025-05-13 15:17 | Emergency (ER) | payer OTHER, SELFPAY ==
[2025-05-13 15:20] VITALS: BP 147/92; PULSE 75; RESP 16; TEMP 36.6; O2SAT 99
--- NOTE | 2025-05-13 15:20 | ED_ITS ---
HPI - Female Genitourinary General Chief complaint: Urogenital-Female Stated complaint: pelvic pain Time Seen by Provider: 05/13/25 15:19 Source: patient Mode of arrival: ambulatory Limitations: no limitations History of Present Illness HPI Narrative: 34-year-old female status post cholecystectomy has been having pelvic pain off and on for the past 4 years. The patient has had multiple ovarian cysts. She had a CT on 02/19/2025 which revealed a 5.1 cm ovarian cyst. She followed up with her orientation & mobility specialist over a devised evaluation after 8 weeks. The patient presents to the ED with -- right lower quadrant abdominal pain which is intermittent -- metromenorrhagia -- dyspareunia no fever or chills no dysuria or hematuria patient had a transvaginal ultrasound at her doctor's office on 05/03/2025. Ultrasound relieved 3 ovarian cysts with some free fluid in the pouch of Valeriy. The largest cyst measured 4.2 cm. MD elicited complaint: other ( right sided pelvic pain) Onset (ago): year(s) ( off and on for the past 4 years) Location of symptoms: RLQ Severity: mild Female Urogenital Radiation: Non-Radiating Quality of pain: aching Consistency: intermittent Vaginal discharge: other ( old blood) Vaginal bleeding: heavy Exacerbating factors: none Relieving factors: none Associated symptoms: denies other symptoms, painful and intercourse Treatment prior to arrival: none Sexual activity: Yes Date of Last Menstrual Period: 04/29/25 Related Data : 2 Para: 2 Total number of abortions (spontaneous and elective): 0 Home Medications ?Medication ?Instructions ?Recorded ?Confirmed ?Last Taken ?Type hydrocodone 5 mg-acetaminophen 325 1 tablet PO Q6-8H PRN pain 02/19/25 Unknown History mg tablet Allergies Allergy/AdvReac Type Severity Reaction Status Date / Time codeine Allergy Mild Unknown Verified 05/13/25 15:29 prednisone Allergy Mild Unknown Verified 05/13/25 15:29 Review of Systems 2 Review of Systems: All systems reviewed & are unremarkable except as noted in HPI and below PMFSH Past Medical History Medical History Bronchitis Surgical History Surgical History History of cholecystectomy Exam 2 Narrative: blood pressure 147/92. Pulse of 75. Oxygen saturation of 99% on room air. Const: General: healthy appearing and no acute distress Nutritional Appearance: well nourished Orientation/consciousness: patient oriented x3 Limitations: no limitations HENMT: Head: normal to inspection Ears: external ears normal F erica/Nose/Sinus: Normal external nose present Face and sinus: normal facial exam Mouth: Yes Normal oral and palatal mucosa present Throat: posterior oropharynx normal Eyes: Conjunctivae: conjunctivae normal Pupils: Equal, round and reactive pupils present EOM: EOMs intact bilaterally Direct Ophthalmoscopy: no photophobia Neck: Neck: normal visual inspection, no lymphadenopathy and no meningeal signs Chest: Chest palpation & inspection: normal inspection of the chest Resp: Effort & Inspection: normal respiratory effort Auscultation: clear to auscultation bilaterally Cardio: Rate: regular rate Rhythm: regular rhythm GI: GI Palp: Yes Soft to palpation Auscultation: normal bowel sounds O ther: Tenderness right lower quadrant and suprapubic region. No rigidity /rebound. : General: Yes no CVA tenderness Back/Spine/Pelvis: Back: no CVA tenderness Skin: General skin exam: normal color Rashes: no rashes Wounds: no wounds Neuro: General: patient oriented x3, moves all extremities, no meningeal signs, no focal motor deficits and CN's II-XI intact bilaterally Cranial nerves: Yes Nystagmus not present Speech: normal speech Gait exam (Neuro): Normal gait present Extrem: General: normal to inspection and no clubbing, cyanosis or edema Psych: Appearance: grossly normal Mental Status: mental status grossly normal Affect: normal affect Attitude: cooperative Course Course Emergency Course: chronic Pelvic pain-- Patient is noted to have a normal white cell count. Patient is afebrile. No peritoneal signs. Normal lactate. UA is negative recurrent ovarian cysts Vital Signs Vital signs: Vital Signs Temperature 36.6 C 05/13/25 15:20 Pulse Rate 75 05/13/25 15:20 Respiratory Rate 16 05/13/25 15:20 Blood Pressure 147/92 H 05/13/25 15:20 Pulse Oximetry 99 05/13/25 15:20 Oxygen Delivery Room Air 05/13/25 15:20 Temperature 36.6 C 05/13/25 15:20 Pulse Rate 75 05/13/25 15:20 Respiratory Rate 16 05/13/25 15:20 Blood Pressure 147/92 H 05/13/25 15:20 Pulse Oximetry 99 05/13/25 15:20 Oxygen Delivery Room Air 05/13/25 15:20 MDM - Female Genitourinary MDM Narrative Medical decision making narrative: chronic pelvic pain recurrent ovarian cysts Lab Data 05/13/25 16:01 05/13/25 16:01 Labs: Lab Results 05/13/25 Range/Units 16:01 WBC 7.8 (4.8-10.8) K/mm3 RBC 3.56 L (4.20-5.40) M/mm3 Hgb 12.9 (12.0-15.0) g/dL Hct 38.6 (35.0-49.0) % MCV 108.4 H (78.0-102.0) fL MCH 36.2 H (27.0-31.0) pg MCHC 33.4 (32-36) g/dL RDW 11.9 (11.6-14.4) % Plt Count 269 (150-420) K/mm3 MPV 8.9 L (9.2-11.8) fl Immature Gran % (Auto) 0.3 H (0.0-0.0) % Neut % (Auto) 55.3 (50.0-70.0) % Lymph % (Auto) 32.0 (18.0-42.0) % Ocean % (Auto) 8.8 (2.0-11.0) % Eos % (Auto) 3.3 (1.0-6.0) % Baso % (Auto) 0.3 (0.0-1.0) % Lymph # (Auto) 2.50 (1.10-4.50) K/mm3 Ocean # (Auto) 0.69 (0.10-0.90) K/mm3 Eos # (Auto) 0.26 (0.02-0.50) K/mm3 Baso # (Auto) 0.02 (0.00-0.10) K/mm3 Abs Immat Gran (auto) 0.02 H (0.00-0.00) K/mm3 Absolute Neuts (auto) 4.33 (1.70-7.20) K/mm3 Absolute Nucleated RBC 0.00 (0.00-0.00) K/mm3 Nucleated RBC % 0.0 (0-0.0) % Sodium 140 (137-145) mmol/L Potassium 3.3 L (3.4-5.0) mmol/L Chloride 111 H (98-107) mmol/L Carbon Dioxide 26 (22-30) mmol/L Anion Gap 3 L (4-12) mmol/L BUN 13 (7-17) mg/dL Creatinine 0.59 L (0.7-1.0) mg/dL Estim Creat Clear Calc 100 ml/min Estimated GFR > 60 (59 - ) Glucose 79 (65-110) mg/dL Calculated Osmolality 289 (285-295) mOsm/kg Lactic Acid 0.6 (0.4-2.0) mmol/L Calcium 8.5 (8.4-10.2) mg/dL Total Bilirubin 0.7 (0.2-1.3) mg/dL AST 27 (14-36) U/L ALT 13 (6-35) U/L Alkaline Phosphatase 38 (38-126) U/L Total Protein 6.4 (6.3-8.2) g/dL Albumin 4.1 (3.5-5.1) g/dL Lipase 73 (23-300) U/L Urine Color Yellow (Yellow) Urine Appearance Clear (Clear) Urine pH 6.0 (5.0-8.0) Ur Specific [place] >= 1.030 H (1.010-1.020) Urine Protein Trace H (Negative) Urine Glucose (UA) Negative (Negative) Urine Ketones Negative (Negative) Ur Blood (Man) Negative (Negative) Urine Nitrate Negative (Negative) Urine Bilirubin Negative (Negative) Urine Urobilinogen 1.0 (0.2-1.0) mg/dL Leukocyte Esterase Rfl Negative (Negative) OMAR/UL Urine Test Negative Discharge Plan Discharge Clinical Impression: Pelvic pain Ovarian cyst Qualifiers: Laterality: unspecified laterality Qualified Code(s): N83.209 - Unspecified ovarian cyst, unspecified side Patient Disposition: Home Condition: Stable Instructions: Antibiotic Form, Ovarian Cyst (ED) Patient Language: Georgian Prescriptions: No Action hydrocodone-acetaminophen 5-325 mg tablet 1 tablet PO Q6-8H PRN (Reason: pain) hydrocodone-acetaminophen 5-325 mg tablet 1 tablet PO Q6H PRN (Reason: pain) Qty: 10 0RF hydrocodone-acetaminophen 5-325 mg tablet 1 tablet PO Q6H PRN (Reason: pain) Qty: 10 0RF Follow-up/Referrals: Nikita Ayon M.D. [Primary Care Provider] - Time of Disposition: 17:27
--- OUTSIDE RECORDS SUMMARY | 2025-05-13 15:20 | XMS_ITS | Encounter Summary ---
Author Organization [facility] Address [facility] [place] [address] Care Team Providers Care Repossession Agent Name Role Phone Mickey Bustamante MD Primary Care Provider [phone] Leland Brooks COLLAR TACKER Unavailable [phone] Encounter Details Date Type Department Care Team (Late st Contact Info) Description 04/08/2019 Abstract [facility] [address] [place] [address] , Harvey Fan MD Social History Tobacco [...] on filedocumented in this encounter Care Teams Repossession Agent Relationship Specialty Start Date End Date Mickey Bustamante MD [address] [place] [address] PCP - General FAMILY PRACTICE 04/11/19 Leland Brooks, COLLAR TACKER [address] [place] [address] NURSE PRACTITIONER 08/01/19 documented as of this encounter
--- OUTSIDE RECORDS SUMMARY | 2025-05-13 15:20 | XMS_ITS | Clinical Summary ---
Author Organization [facility] Address [facility] [place] [address] Care Team Providers Care Regular Senior Care Provider Name Role Phone Mickey Bustamante MD Primary Care Provider [phone] Leland Brooks SHOTGUN SHELL REPRINTING UNIT OPERATOR Unavailable [phone] Allergies No known active allergies Medications [...] 6:53 PM CDT Height 154.9 cm (5' 1) 06/17/2021 6:53 PM CDT Body Mass Index 21.73 06/17/2021 6:53 PM CDT Plan of Treatment Health Maintenance Due Date Last Done Comments Cervical Cancer Screening Pa p Smear (Age 30 to 64) Every 3 Years 1992 Annual Physical 1995 Hepatitis C 2010 DTaP, Tdap and Td Vaccines ( 1 - Tdap) 2011 Hepatitis B Vaccines (1 of 3 - 19+ 3-dose series) 2011 Pneumococcal Vaccine: Pediat rics (0 to 5 Years) and At-Risk Patients (6 to 49 Years) (1 of 2 - PCV) 2011 Cervical Cancer Screening Pa p with [...] patient's age to complete this topic Insurance [facility] Advance Directives * Full Code (Latest Code Status on File) Date Activated Date Inactivated Comments 01/17/2020 4:57 AM 01/18/2020 12:27 PM Care Teams Regular Senior Care Provider Relationship Specialty Start Date End Date Mickey Bustamante MD [address] [place] [address] PCP - General FAMILY PRACTICE 04/11/19 Leland Brooks, SHOTGUN SHELL REPRINTING UNIT OPERATOR [address] [place] [address] NURSE PRACTITIONER 08/01/19
--- OUTSIDE RECORDS SUMMARY | 2025-05-13 15:20 | XMS_ITS | Data Portability ---
Author Organization [facility], [id number] [facility] Address [address] [place] [address] Assessment No assessment recorded. Plan of Treatment Reminders Order Date Submit Date Provider Last Modified By Organization Details Last Modified Time Details Appointments None recorded. Lab None recorded. Referral None recorded. Procedures None recorded. Surgeries None recorded. Imaging US, pelvis 2024 025 [email or web address] Not available 11:48:26 US, transvagi nal 2024 025 [email or web address] Not available 11:48:26 Medication Orders None recorded. Patient TargetsNo targets recorded. Patient Instructions Encounter Date Encounter Id Patient Instructions Last Modified By Organization Details Last Modified Time 03/15/2025 [id number] functional ovarian cyst: care instructions [email or web address] Not available 03/15/2025 15:39:55 Reason for Referral None Reported. Results Created Date Observation Date Name Description Value Unit Range Abnormal Flag Note LastModifiedBy Organization Detail LastModifiedTime 05/03/2005/03/2025 ultra sound image s RAD bgelly [employer] [employer] [id number] 05/03/2025 18:17:06 05/04/2005/03/2025 US, trans vagin al No observ ation record ed. [email or web address] Not Available 2024 15:01:07 Result Notes None recorded. Problems Name Problem SNOMED Code Status Onset Date Resolution Date Notes Provider Name and Address Organization Details Recorded Time Depressive disorder 62863456 Active Depressio n, Problem Code: 311; Problem Code Type: ICD-9; Not Available [facility] 13:10:50 Atypical glandular cells on cervical Papanicola ou smear 848322889 Active Abnormal PAP Smear, Problem Code: 795.00; Problem Code Type: ICD-9; Startdate : '2017'; Not Available [facility] 13:10:50 Problem Notes None recorded. Procedures Surgical History Date Name Laterality Status Provider Name and Address Organization Details Recorded Time 02/16/20 Date of Last Pap Smear completed Crystal Braden [place] - [facility] 03/15/2025 15:07:34 Laparoscopic cholecystectomy completed Not Available [facility] 03/09/2025 16:29:33 colposcopy completed Not Available [facility] 03/09/2025 16:29:33 Imaging Results None recorded. Procedure Notes None recorded. Medical Equipment None Reported. Allergies Allergen ID Allergen Name Allergen Category Reaction Reaction Severity Criticality Documentation Date Start Date Code Code System Note Provider Name and Address Organization Details Recorded Time 369581 Chocolate Flavor medicatio n Not available Not available Not available 03/09/2025 06491 UNK Aller gyRea ction : 'migr dante' ; Not Available [facility] 13:59:34 418533 codeine medicatio n Not available Not available Not available 03/15/2025 2670 RxNorm Chika Feliciano null, [place] - [facility] 14:55:31 814901 prednison e medicatio n Not available Not available Not available 03/15/2025 8640 RxNorm Chika Feliciano null, [place] - [facility] 14:55:31 808520 lactose food,medi cation Not available Not available Not available 03/15/2025 6211 RxNorm Crystal Braden null, [place] - [facility] 14:55:31 Medications Name Sig Start Date Stop Date Status Note LastModified by Organization Details LastModified Time hydrocodone 5 mg-acetaminop hen 325 mg tablet TAKE 1 TABLET BY MOUTH EVERY 6 HOURS NEEDED FOR PAIN active Not Available Not Available No t Available Vitals Date Recorded Body height Body mass index (BMI) Body weight Systolic And Diastolic Provider Name and Address Organization Details Last Updated DateTime 03/15/2025 157.48 cm 26 kg/m2 46056.84 g 120/78 mm[Hg] Chika Feliciano [facility] 03/15/2025 15:06:37 Social History Question Answer Notes LastModified by Organizat ion Details LastModified Time Tobacco Smoking Status Current Every Day Smoker Qty: 7-10 cigs/day Not Available [facility] 03/09/2025 18:25:38 Do You Have An Advance Directive? No [email or web address] Information not available 03/15/2025 If You Are , What Was Your Level Of Alcohol Consumption Prior To ? None [email or web address] Information not available 03/15/2025 How Many Years Have You Consumed Alcohol? 14 [email or web address] Information not available 03/15/2025 What Is Your Level Of Caffeine Consumption? Heavy [email or web address] Information not available 03/15/2025 What Type Of Diet Are You Following? REGULAR [email or web address] Information not available 03/15/2025 What Is Your Relationship Status? Other Note: Information not available 03/09/2025 At What Age Did You Start Smoking Tobacco? 18 [email or web address] Information not available 03/15/2025 How Much Tobacco Do You Smoke? 0.5 PPD [email or web address] Information not available 03/15/2025 Sex: Female Functional Status Question Answer Note LastModified by Organizat ion Details LastModified Time Do you use any illicit or recreational drugs? No Note: Information not available 03/09/2025 What is your level of alcohol consumption? Occasional Qty: occas; Note: Use status used: Current some day Amount used: occas Information not available 03/09/2025 Are you currently employed? 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 Family History Relationship Description Onset Age of this Age Resolved Age Notes LastModified by Organization Details LastModified Time Son Heart disease Heart Diseas [email or web address] Not available 05/03/2025 11:08:21 Unspecified Relation Heart disease [email or web address] Not available 03/15 14:55:34 Maternal Grandfather Heart disease [email or web address] Not available 03/15 14:55:34 Father Heart disease [email or web address] Not available 03/15 14:55:34 Medical History Condition Response Psych- Depression Y Reviewed with no changes Y Gynecological History Statement/Question Response Flow Heavy History of Fibroids N Date of LMP 02/17/2025 Current Control Method: None History of Recurrent Ovarian Cysts Y Cologuard Testing N Age at first intercourse 19 Post Menopausal Hormone Therapy User Nev er 15 History of PCOS N History of Infertility N History of Cervical Dysplasia N History of Vulvar Dysplasia N Duration of Flow (days) 15 Current Control Method None Age at Menarche 16 History of Endometriosis N Sexually Active? Y History of Abnormal PAP Y History of Dysmenorrhea N Menses Monthly Y Date of Last Pap Smear 02/15/2025 Sexual Problems? Y History of Sexually Transmitted Infectio n N Obstetrics History GPAL:G 2 P 1 1 0 2 Type Value Multiple Births 0 Full Term 1 Induced 0 Spontaneous 0 Premature 1 Living 2 Ectopics 0 Total 2 Past Encounters Encounter ID Performer Location Encounter Start Date Encounter Closed Date Diagnosis/Indication Diagnosis SNOMED-CT Code Diagnosis ICD10 Code Diagnosis Note [id number] ERIKA GRAY RD, MD [id number] [place] [address] 03/15/2025 14:53:32 03/15/2025 15:37:25 History of gynecological disorder 132093697 Z87.42 EMS wnl- discussed no need for EMB. Cervix normal on exam- pap wnl. Followup ultrasound in 6-8 weeks. Precaution s reviewed. [id number] DELROY HICKS MD [id number] [place] [address] 05/03/2025 11:08:20 05/03/2025 11:48:26 Cyst of ovary 75515814 N83.299 Health Concerns Section Related Observation LastModified by Organization Detai ls LastModified Time None Recorded Concern Status LastModified by Organization Details LastModified Time None Recorded Advance Directives Directive N: Payers Insurance Date Sequence Insurance Name Policy Number Policy Nuñez Covered Member ID Nuñez Member ID Guarantor Name 05/09/2025 1 [employer] OF [facility] ON OR AFTER 10/09/2020 (MEDICAID REPLACEMENT - HMO) Tyesha Valverde [id number] Tyesha Valverde Notes Date Note Type Note Provider Name and Address Organization Details Recorded Time 03/15/2025 text/html Patient presents for consult regarding cysts on her ovaries and thickening of the endometrial wall. Patient also states the doctor seen ulcerations on her cervix when she did her last pap. Endometrial stripe 4mm on last ultrasound and 4.2cm simple left ovarian cyst. Pain has improved, has cramping off and on however never had that bursting feeling. [facility] [address] [facility] [address] [facility] [address], [place], [address], [facility] 03/15/2025 15:39:57 OBGyn Episode Ob Episode Information Episode Created Date Number of Fetuses Patient Bloodtype Patient rh Status Prepregnancy Weight lbs Domestic Partner Domestic Partner Phone Father Name Production Manufacturing Worker Status 03/24/20 25 1 CLOSED Fetus Data First Name Last Name Admitted to NICU Weight (g) Sex Living Outcome Pediatric Complications Fetus ID Race Codes Race Delivery Type M [id number] Vaginal Matthwe Calculation Initial Matthew Date Initial Exam Date Initial Exam Provider Initial Ultrasound Date Last Menstrual Period Date Ultra Sound Weeks Gestation 0 Eighteen To Twenty Week Matthew Update Ultra Sound Date Fundal Height At Umbil Quickening Date Ultra Sound Latest Weeks Gestation Final Matthew Confirmed By Final Matthew Confirmed Date Final Matthew Date Ultra Sound Latest Days Gestation 0 0 Menstrual History Last Menstrual Date Menses Monthly On Bcp Conception Prior Menses Frequency Hcg Plus Date Menarche Onset Age Delivery Information Delivery Date Delivery Type Labor Anesthesia Weeks Gestation Incision Type Labor Labor Length Hrs Delivered By Post Complications Tubal Sterilization Discharge Date Comments 8 39 Richie , baby had PUC's fetus_1_w eight_lbs : '7# 9oz'; Discharge Information Feeding Method Contraceptive Method Maternal HG B and HCT Levels Ob Episode Information Episode Created Date Number of Fetuses Patient Bloodtype Patient rh Status Prepregnancy Weight lbs Domestic Partner Domestic Partner Phone Father Name Production Manufacturing Worker Status 03/24/20 25 1 CLOSED Fetus Data First Name Last Name Admitted to NICU Weight (g) Sex Living Outcome Pediatric Complications Fetus ID Race Codes Race Delivery Type M [id number] Vaginal Matthew Calculation Initial Matthew Date Initial Exam Date Initial Exam Provider Initial Ultrasound Date Last Menstrual Period Date Ultra Sound Weeks Gestation 0 Eighteen To Twenty Week Matthew Update Ultra Sound Date Fundal Height At Umbil Quickening Date Ultra Sound Latest Weeks Gestation Final Matthew Confirmed By Final Matthew Confirmed Date Final Matthew Date Ultra Sound Latest Days Gestation 0 0 Menstrual History Last Menstrual Date Menses Monthly On Bcp Conception Prior Menses Frequency Hcg Plus Date Menarche Onset Age Delivery Information Delivery Date Delivery Type Labor Anesthesia Weeks Gestation Incision Type Labor Labor Length Hrs Delivered By Post Complications Tubal Sterilization Discharge Date Comments 3 37 [facility], fetus_1_w eight_lbs : '5# 7oz'; Discharge Information Feeding Method Contraceptive Method Maternal HG B and HCT Levels
--- OUTSIDE RECORDS SUMMARY | 2025-05-13 15:20 | XMS_ITS | Encounter Summary ---
Author Organization [facility] Address [facility] [place] [address] Care Team Providers Care Pneumatic Jacketer Name Role Phone Mickey Bustamante MD Primary Care Provider [phone] Leland Brooks MARKETING STRATEGY MANAGER Unavailable [phone] Encounter Details Date Type Department Care Team (Late st Contact Info) Description 04/16/2019 Abstract [facility] [address] [place] [address] , Generic Conversion, Social History Tobacco Use [...] on filedocumented in this encounter Care Teams Pneumatic Jacketer Relationship Specialty Start Date End Date Mickey Bustamante MD [address] [place] [address] PCP - General FAMILY PRACTICE 04/11/19 Leland Brooks, MARKETING STRATEGY MANAGER [address] [place] [address] NURSE PRACTITIONER 08/01/19 documented as of this encounter
--- OUTSIDE RECORDS SUMMARY | 2025-05-13 16:02 | XMS_ITS | Clinical Summary ---
Author Organization [facility] Address [facility] [place] [address] Care Team Providers Care Mixer Pigment Name Role Phone Mickey Bustamante MD Primary Care Provider [phone] Leland Brooks GROUND SUPPORT EQUIPMENT ASSEMBLER Unavailable [phone] Allergies No known active allergies Medications [...] to complete this topic Insurance [facility] Advance Directives * Full Code (Latest Code Status on File) Date Activated Date Inactivated Comments 01/17/2020 4:57 AM 01/18/2020 12:27 PM Care Teams Mixer Pigment Relationship Specialty Start Date End Date Mickey Bustamante MD [address] [place] [address] PCP - General FAMILY PRACTICE 04/11/19 Leland Brooks, GROUND SUPPORT EQUIPMENT ASSEMBLER [address] [place] [address] NURSE PRACTITIONER 08/01/19
--- OUTSIDE RECORDS SUMMARY | 2025-05-13 16:02 | XMS_ITS | Encounter Summary ---
Author Organization [facility] Address [facility] [place] [address] Care Team Providers Care Brass Polisher Name Role Phone Mickey Bustamante MD Primary Care Provider [phone] Leland Brooks PAPIER MACHE MOLDER Unavailable [phone] Encounter Details Date Type Department Care Team (Late st Contact Info) Description 04/08/2019 Abstract [facility] [address] [place] [address] , Harvey Fan MD Social History Tobacco [...] on filedocumented in this encounter Care Teams Brass Polisher Relationship Specialty Start Date End Date Mickey Bustamante MD [address] [place] [address] PCP - General FAMILY PRACTICE 04/11/19 Leland Brooks, PAPIER MACHE MOLDER [address] [place] [address] NURSE PRACTITIONER 08/01/19 documented as of this encounter
--- OUTSIDE RECORDS SUMMARY | 2025-05-13 16:02 | XMS_ITS | Encounter Summary ---
Author Organization [facility] Address [facility] [place] [address] Care Team Providers Care Perinatal Instructor Name Role Phone Mickey Bustamanet MD Primary Care Provider [phone] Leland Brooks [employer]IL [employer] Unavailable [phone] Encounter Details Date Type Department Care Team (Late st Contact Info) Description 04/16/2019 Abstract SFL CONVERSION [address] [place] [address] , Generic Conversion, Social History Tobacco Use [...] on filedocumented in this encounter Care Teams Perinatal Instructor Relationship Specialty Start Date End Date Mickey Bustamante MD [address] [place] [address] PCP - General FAMILY PRACTICE 04/11/19 Leland Brooks, [employer]IL BOARD MAN [address] [place] [address] NURSE PRACTITIONER 08/01/19 documented as of this encounter
[2025-05-13 16:06] LABS: Hematocrit 38.6 % (35.0-49.0); Hemoglobin 12.9 g/dL (12.0-15.0); Immature Granulocyte Percent A 0.3 % (0.0-0.0); Lymphocytes Absolute Auto 2.50 K/mm3 (1.10-4.50); Mean Corpuscular HGB Conc 33.4 g/dL (32-36); Mean Corpuscular Hemoglobin 36.2 pg (27.0-31.0); Mean Corpuscular Volume 108.4 fL (78.0-102.0); Nucleated Red Blood Cells Absolute Auto 0.00 K/mm3 (0.00-0.00); Nucleated Red Blood Cells Perc 0.0 % (0-0.0); Platelet Count Result 269 K/mm3 (150-420); Red Blood Count 3.56 M/mm3 (4.20-5.40); White Blood Count 7.8 K/mm3 (4.8-10.8)
[2025-05-13 16:17] LABS: Add Urine Microscopic? YES; Appearance Urine Clear (Clear); Glucose Urine UA Negative (Negative); Leukocyte Esterase Ur Negative LEU/UL (Negative); Nitrate Urine Negative (Negative); Specific Grav Ur >= 1.030 (1.010-1.020)
[2025-05-13 16:22] LABS: Pregnancy On Board Control Positive
[2025-05-13 16:45] LABS: Alanine Aminotransferase 13 U/L (6-35); Albumin Level 4.1 g/dL (3.5-5.1); Alkaline Phosphatase 38 U/L (38-126); Anion Gap 3 mmol/L (4-12); Aspartate Amino Transferase 27 U/L (14-36); Bilirubin,Total 0.7 mg/dL (0.2-1.3); Blood Urea Nitrogen 13 mg/dL (7-17); Calcium 8.5 mg/dL (8.4-10.2); Carbon Dioxide 26 mmol/L (22-30); Chloride 111 mmol/L (98-107); Estimated CRCL calculation 100 ml/min; Estimated Glomerular Filt Rate > 60; Glucose 79 mg/dL (65-110); Lipase 73 U/L (23-300); Osmolality Calculated 289 mOsm/kg (285-295); Potassium 3.3 mmol/L (3.4-5.0); Sodium 140 mmol/L (137-145); Total Protein 6.4 g/dL (6.3-8.2)
[2025-05-13 17:50] VITALS: BP 145/90; PULSE 86; RESP 18; TEMP 36.8; O2SAT 100
== END 2025-05-13 17:54 | disposition home or self-care (01) ==
PROVIDERS: Emergency Provider Internal Medicine Critical Care Medicine; PCP Family Medicine
DX: N83.209 Unspecified ovarian cyst, unspecified side (principal)
CPT/HCPCS: 36415; 80053; 81001; 81025; 83605; 83690; 85025; 99283